=== PATIENT | female | born 1940 | race Caucasian/White ===

== ENCOUNTER 2018-01-01 19:18 | Emergency (ER) | payer OTHER ==
[~2018-01-01] VITALS: Ht 167.6 cm; Wt 58.2 kg
[~2018-01-01 19:18] MED LIST: MOTRIN600 MG PO; PREDNISONE10 MG PO
[2018-01-01 20:47] LABS: HEMATOCRIT 45.1 % (36.0-46.0); HEMOGLOBIN 15.4 G/DL (11.9-15.5); MCH 33.6 PG (29.0-34.0); MCHC 34.1 G/DL (30.0-36.0); MCV 98.5 FL (83-99); PLATELET COUNT 210 K/uL (156-360); RBC DIS.WIDTH-CV 13.9 % (11.8-14.6); RBC DIS.WIDTH-SD 50.9 % (39-53); RED BLOOD COUNT 4.58 M/uL (3.80-5.20)
[2018-01-01 20:55] LABS: CHLORIDE 106 mEq/L (99-109)
[2018-01-01 20:56] LABS: MAGNESIUM 2.1 mg/dL (1.3-2.7); SODIUM 138 mEq/L (136-147)
[2018-01-01 20:57] LABS: GLUCOSE 99 mg/dL (70-99)
[2018-01-01 21:01] LABS: CREATININE 0.7 mg/dL (0.6-1.3); GFR ESTIMATE (CALCULATED) > 59 mL/min/
[2018-01-01 21:02] LABS: UREA NITROGEN (BUN) 17 mg/dL (9-23)
[2018-01-01 21:04] LABS: CREATINE KINASE 43 IU/L (1-294)
[2018-01-01 21:09] LABS: APPEARANCE CLEAR ((CLEAR)); BILIRUBIN NEGATIVE; BLOOD NEGATIVE; COLOR YELLOW ((YELLOW)); GLUCOSE (STRIP) NEGATIVE; KETONES 5; LEUKOCYTES NEGATIVE; NITRITE NEGATIVE; PROTEIN (STRIP) NEGATIVE; SPECIFIC GRAVITY 1.013 (1.000-1.030); UROBILINOGEN 0.2 MG/DL (0.2-1.0)
[2018-01-01] MEDS ORDERED: MOTRIN600 MG PO (22:49)
[2018-01-01] MEDS ORDERED: PERCOCET 5/31 TABLET PO (22:49)
[2018-01-01 23:50] VITALS: BP 115/87
[2018-01-02 07:49] LABS: THYROTROPIN (TSH) 0.84 MIU/L (0.4-5.5)
[2018-01-02 12:05] LABS: LYME DISEASE SEROLOGY SCREEN NEGATIVE (NEGATIVE)
== END 2018-01-01 23:51 | disposition home or self-care (01) ==
LOC: EME 19:18
PROVIDERS: Physician Assistant
DX: G57.92 Unspecified mononeuropathy of left lower limb (principal); M51.37 Other intervertebral disc degeneration, lumbosacral region; M54.32 Sciatica, left side; R29.6 Repeated falls; M35.3 Polymyalgia rheumatica; F17.200 Nicotine dependence, unspecified, uncomplicated
CPT/HCPCS: 72131; 72192; 80048; 81003; 82550; 82607; 83735; 84443; 85027; 86618; 93005; 99281; 99285; J3010